=== PATIENT | male | born 1970 | race Caucasian/White ===

== ENCOUNTER 2018-05-08 02:39 | Emergency (ER) | payer BC ==
--- NOTE | 2018-05-08 02:52 | ER Report ---
History and Physical Time Seen By MD: 02:52 Hx. of Stated Complaint: PT REPORTS PAIN WITH DEEP BREATHING AND TIGHTNESS IN CHEST PAST 2 DAYS HPI/ROS This is a 47-year-old male who is a daily tobacco smoker. He presents to the emergency department with 24 hours of worsening pleuritic chest pain. States he feels a tightness in his chest when taking a deep breath. Describes it as something "blocking" him from taking a deep breath. He denies any trauma. He denies fever chills. He has had multiple episodes of pneumonia in the past. He does not have a cough. 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 He does not have any pain in his lower extremities. No recent trauma. Allergies: Coded Allergies: codeine (Verified Allergy, Mild, 07/14/08) adhesive tape (Verified Allergy, Unknown, 05/08/18) Home Meds Reported Medications Ibuprofen (Motrin) 200 Mg Tab, 200 MG PO Q6H Y, #20 02/12/12 Discontinued Reported Medications Cephalexin Monohydrate (Keflex) 500 Mg Cap, 500 MG PO QID, #20 02/12/12 Guaifenesin (Guaifenesin) 600 Mg Tabcr, 600 MG PO BID 02/12/12 Tramadol Hcl (Ultram) 50 Mg Tab, 50 MG PO Q6H Y 02/12/12 Acetaminophen (Acetaminophen) 325 Mg Tablet, 325 MG PO Q6H Y may take 1 or 2 tablets as needed 02/12/12 Naproxen (Naprosyn) 250 Mg Tab, 250 MG PO BID Y 02/12/12 Meclizine Hcl (Meclizine Hcl) 25 Mg Tab.chew, 25 MG PO Q6-8H Y 02/12/12 Reviewed Nurses Notes: Yes Old Medical Records Reviewed: Yes Hx Smoking: Yes Smoking Status: Current: Every Day Smoker Exposure to Second Hand Smoke?: No Hx Substance Use Disorder: No Constitutional Vital Sign - Last 24 Hours 05/08/18 05/08/18 05/08/18 05/08/18 02:39 02:42 02:43 02:54 Temp 98.6 Pulse ??? 79 70 Resp 20 12 B/P (MAP) 143/99 143/99 (114) Pulse Ox 93 O2 Delivery Room Air 05/08/18 05/08/18 05/08/18 05/08/18 03:00 03:09 03:24 03:30 Pulse 78 ??? Resp 17 B/P (MAP) 125/84 (98) ???/??? (1665) Pulse Ox 94 05/08/18 05/08/18 05/08/18 05/08/18 03:39 03:51 03:54 04:00 Pulse ??? 73 Resp 15 B/P (MAP) 128/81 (97) 113/82 (92) Pulse Ox 95 05/08/18 04:09 Pulse 69 Resp 12 Pulse Ox 93 Physical Exam General Appearance: The patient is alert, has no immediate need for airway protection and no current signs of toxicity. Eyes: Pupils equal and round no injection. Respiratory: Chest is non tender, lungs are clear to auscultation. Cardiac: regular rate and rhythm Gastrointestinal: Abdomen is soft and non tender, no masses, bowel sounds normal. Extremities have full range of motion and are non tender. Skin: No rashes or lesions. DIFFERENTIAL DIAGNOSIS: After history and physical exam differential diagnosis was considered for shortness of breath including but not limited to pulmonary infectious process, COPD, asthma, pulmonary embolus and congestive heart failure. Medical Decision Making Data Points Result Diagram: 05/08/18 0256 05/08/18 0256 Laboratory Hematology Test 05/08/18 02:56 Red Blood Count 5.61 M/uL (4.00-5.60) Mean Corpuscular Volume 89.5 fL (80.0-96.0) Mean Corpuscular Hemoglobin 31.0 pg (26.0-33.0) Mean Corpuscular Hemoglobin Concent 34.7 g/dL (32.0-36.0) Red Cell Distribution Width 14.4 % (11.5-14.5) Mean Platelet Volume 7.7 fL (7.2-11.1) Neutrophils (%) (Auto) 65.5 % (39.4-72.5) Lymphocytes (%) (Auto) 21.8 % (17.6-49.6) Monocytes (%) (Auto) 9.4 % (4.1-12.4) Eosinophils (%) (Auto) 2.8 % (0.4-6.7) Basophils (%) (Auto) 0.5 % (0.3-1.4) Nucleated RBC Relative Count (auto) 0.1 /100WBC Neutrophils # (Auto) 7.3 K/uL (2.0-7.4) Lymphocytes # (Auto) 2.4 K/uL (1.3-3.6) Monocytes # (Auto) 1.0 K/uL (0.3-1.0) Eosinophils # (Auto) 0.3 K/uL (0.0-0.5) Basophils # (Auto) 0.1 K/uL (0.0-0.1) Nucleated RBC Absolute Count (auto) 0.01 K/uL Sodium Level 138 mmol/L (137-145) Potassium Level 3.5 mmol/L (3.5-5.0) Chloride Level 103 mmol/L (98-107) Carbon Dioxide Level 27 mmol/L (22-30) Blood Urea Nitrogen 20 mg/dl (9-21) Creatinine 1.00 mg/dl (0.66-1.25) Glomerular Filtration Rate Calc > 60.0 Random Glucose 106 mg/dl (75-110) Calcium Level 8.5 mg/dl (8.4-10.2) Total Bilirubin 0.7 mg/dl (0.2-1.3) Aspartate Amino Transf (AST/SGOT) 21 U/L (0-35) Alanine Aminotransferase (ALT/SGPT) 26 U/L (0-56) Alkaline Phosphatase 95 U/L (0-126) Troponin I < 0.012 ng/ml Total Protein 6.7 gm/dl (6.3-8.2) Albumin 3.7 g/dl (3.5-5.0) Chemistry Test 05/08/18 02:56 White Blood Count 11.1 k/uL (4.5-11.0) Red Blood Count 5.61 M/uL (4.00-5.60) Hemoglobin 17.4 g/dL (14.0-18.0) Hematocrit 50.2 % (42.0-52.0) Mean Corpuscular Volume 89.5 fL (80.0-96.0) Mean Corpuscular Hemoglobin 31.0 pg (26.0-33.0) Mean Corpuscular Hemoglobin Concent 34.7 g/dL (32.0-36.0) Red Cell Distribution Width 14.4 % (11.5-14.5) Platelet Count 271 K/uL (150-450) Mean Platelet Volume 7.7 fL (7.2-11.1) Neutrophils (%) (Auto) 65.5 % (39.4-72.5) Lymphocytes (%) (Auto) 21.8 % (17.6-49.6) Monocytes (%) (Auto) 9.4 % (4.1-12.4) Eosinophils (%) (Auto) 2.8 % (0.4-6.7) Basophils (%) (Auto) 0.5 % (0.3-1.4) Nucleated RBC Relative Count (auto) 0.1 /100WBC Neutrophils # (Auto) 7.3 K/uL (2.0-7.4) Lymphocytes # (Auto) 2.4 K/uL (1.3-3.6) Monocytes # (Auto) 1.0 K/uL (0.3-1.0) Eosinophils # (Auto) 0.3 K/uL (0.0-0.5) Basophils # (Auto) 0.1 K/uL (0.0-0.1) Nucleated RBC Absolute Count (auto) 0.01 K/uL Glomerular Filtration Rate Calc > 60.0 Calcium Level 8.5 mg/dl (8.4-10.2) Total Bilirubin 0.7 mg/dl (0.2-1.3) Aspartate Amino Transf (AST/SGOT) 21 U/L (0-35) Alanine Aminotransferase (ALT/SGPT) 26 U/L (0-56) Alkaline Phosphatase 95 U/L (0-126) Troponin I < 0.012 ng/ml Total Protein 6.7 gm/dl (6.3-8.2) Albumin 3.7 g/dl (3.5-5.0) EKG/Imaging EKG Interpretation 12 lead EKG: Rhythm: normal sinus rhythm [place]: normal QRS: normal ST segments: normal Monitor Interpretation: Normal Sinus Rhythm Imaging X-ray: CXR was obtained. I viewed the images myself on the PACS system. My interpretation of the images is: normal. The radiologist interpretation had no clinically significant variation from this interpretation. Results: CT scan of the CTA of the chest was obtained. The results of the study are normal. The study was read by the radiologist. I viewed the images myself on the PACS system. ED Course/Re-evaluation ED Course This is a 47-year-old male who presents to the emergency department with pleuritic chest pain. He smokes a pack of cigarettes per day. He has had the symptoms for approximately 24 hours. He denies cough fever or chills. He has a normal EKG, and a normal troponin after experiencing symptoms for 24 hours. A chest x-ray and a CTA of the chest are both normal. There is no PE, pneumothorax , or pneumonia. He was given a DuoNeb and Toradol for his symptoms. He states that he feels improved. He does not need any steroids. I think he likely has a viral URI, and I will recommend supportive care. Decision to Disposition Date: May 08, 2018 Decision to Disposition Time: 04:32 Depart Departure Latest Vital Signs Vital Signs Date Time Temp Pulse Resp B/P (MAP) Pulse Ox O2 Delivery O2 Flow Rate FiO2 05/08/18 04:09 69 12 93 05/08/18 04:00 113/82 (92) 05/08/18 02:42 98.6 Room Air Impression: Primary Impression: Viral URI Condition: Improved Disposition: HOME OR SELF-CARE Referrals: CARLOS POPE (PCP) Patient Instructions: Upper Respiratory Infection (ED) LILIAN HAQ MD May 08, 2018 02:52
[2018-05-08] MEDS ORDERED: ASPIRIN 81 MG CHEW PO ONE (02:55)
[2018-05-08] MEDS ORDERED: NS(*) 0.9% 1000 ML BAG 1,000 ML IV ONE (02:55)
[2018-05-08] MEDS ORDERED: KETOROLAC 30 MG/ML VIAL IVP ONE (02:55)
--- NOTE | 2018-05-08 03:01 | EKG ---
FACILITY: [facility] PATIENT NAME: TRISTEN FREDERICK : [id number] MR: [id number] V: [id number] EXAM DATE: ORDERING PHYSICIAN: LILIAN HAQ TECHNOLOGIST: MICHOACANO Test Reason : CP Blood Pressure : / mmHG Vent. Rate : 073 BPM Atrial Rate : 073 BPM P-R Int : 168 ms QRS Dur : 100 ms QT Int : 368 ms P-R-T Axes : 060 016 011 degrees QTc Int : 405 ms Normal sinus rhythm Normal ECG No previous ECGs available Confirmed by IVON KAUR ([id number]) on 05/09/2018 11:07:52 AM Referred By: Confirmed By:IVON KAUR
[2018-05-08 03:08] LABS: PLATELET COUNT, AUTOMATED 271 K/uL (150-450)
[2018-05-08] MEDS ORDERED: NS 0.9% 25 ML BAG 50 ML ONE (03:16)
[2018-05-08] MEDS ORDERED: IOPAMIDOL 76% 75 ML INFUS BTL 75 ML ONE (03:16)
--- NOTE | 2018-05-08 03:46 | RADIOLOGY IMAGING REPORT ---
FACILITY: [facility] PATIENT NAME: Donavon Lee : 1970 MR: [id number] V: [id number] EXAM DATE: ORDERING PHYSICIAN: LILIAN HAQ TECHNOLOGIST: Location: [facility] Patient: Donavon Lee : 1970 Visit/Account:[id number] Date of Sevice: 05/08/2018 CHEST SINGLE AP 05/08/2018 02:52 hours. HISTORY: Chest pain for 3 days. History of pneumonia. Evaluate for pneumothorax. COMPARISON: 04/09/2017 and studies dating to 06/21/2006. TECHNIQUE: Portable AP view of the chest. FINDINGS: Tubes/lines/hardware: There are external chest leads. Pulmonary: No pneumothorax. There is very mild linear scarring or atelectasis in the left lower lung field, new. Right lung is clear. No pleural effusion. Cardiomediastinal: Cardiac and mediastinal silhouettes are within normal limits. Bones/soft tissues: No acute osseous abnormality. The visible abdomen is normal. IMPRESSION: 1. New mild scarring or atelectasis in the left lower lung field. 2. No pneumothorax. Report Dictated By: Miranda Cr at 05/08/2018 3:39 AM Report E-Signed By: Miranda Cr at 05/08/2018 3:41 AM WSN:[id number]
--- NOTE | 2018-05-08 04:21 | RADIOLOGY IMAGING REPORT ---
FACILITY: [facility] PATIENT NAME: Donavon Lee : 1970 MR: [id number] V: [id number] EXAM DATE: ORDERING PHYSICIAN: LILIAN HAQ TECHNOLOGIST: Location: [facility] [place] Patient: Donavon Lee : 1970 Visit/Account:[id number] Date of Sevice: 05/08/2018 EXAMINATION: CTA Chest With Contrast 05/08/2018 2:52 AM HISTORY: Chest pain for 3 days. History of pneumonia. TECHNIQUE: Pulmonary embolus protocol - Thin-slice axial imaging of the chest was performed during maximal pulmonary arterial opacification with intravenous nonionic iodinated contrast. 3D coronal sla b MIPs and 2D reconstructions in the coronal and sagittal planes were performed to aid in pulmonary e mbolus detection. Filler Feeder images have been stored on PACS. Contrast: 75 mL of IV Isovue 370. One of the following dose optimization techniques was utilized in the performance of this exam: Autom ated exposure control; adjustment of the mA and/or kV according to the patient's size; or use of an i terative reconstruction technique. Specific details can be referenced in the facility's radiology C T exam operational policy. COMPARISON STUDIES: Chest x-ray 02/11/2012, CT 02/10/2012. FINDINGS: Angiographic Findings: Pulmonary arteries: There are no filling defects in the main, right, left, lobar, segmental or visual ized sub-segmental branches of the pulmonary arterial system Other vasculature: negative Additional non-angiographic findings: Lungs / pleura: Calcified granuloma in the right lower lobe. No significant acute finding. Mediastinum / regulo: negative Heart / pericardium: negative Musculoskeletal / Body wall: negative Lymph node assessment: negative Lower neck: negative Upper abdomen: 2.7 cm gallstone in the gallbladder. IMPRESSION: 1. Negative CTA evaluation for PE. 2. No acute cardiopulmonary finding. Report Dictated By: Andrea Bateman MD at 05/08/2018 4:10 AM Report E-Signed By: Andrea Bateman MD at 05/08/2018 4:17 AM WSN:[id number]
[2018-05-08 04:30] VITALS: BP 120/82
[2018-05-08] MEDS ORDERED: ALBUTEROL 2.5 MG/3 ML NEB NEB ONE (04:30)
== END 2018-05-08 04:56 | disposition home or self-care (01) ==
LOC: ER 03:13
DX: J06.9 Acute upper respiratory infection, unspecified (principal)
CPT/HCPCS: 71045; 71275; 84484; 85025; 93005; 96361; 96374; 99284; J1885; J7030; J7613; Q9967; 82040; 82247; 82310; 82374; 82435; 82565; 82947; 84075; 84132; 84155; 84295; 84450; 84460; 84520

== ENCOUNTER → 2018-05-08 | Outpatient (REF) | payer BC ==
[~2018-05-08] MED LIST: ACET-1748 PO; CEP500 PO; GUALA600 PO; IBU200 PO; IBU600 PO; MEC25 PO; MECL-111 PO; NAP250 PO; TRA50 PO
[2018-05-08 19:26] LABS: PLATELET COUNT, AUTOMATED 260 K/uL (150-450)
== END ==
PROVIDERS: ATTEND Nurse Practitioner Family
DX: R07.9 Chest pain, unspecified (principal)
CPT/HCPCS: 82040; 82247; 82310; 82374; 82435; 82565; 82947; 84075; 84132; 84155; 84295; 84450; 84460; 84484; 84520; 85025

== ENCOUNTER → 2018-08-08 | Day surgery (SDC) | payer BC ==
[~2018-08-08] VITALS: Ht 182.9 cm; Wt 126.1 kg
[2018-08-08] VITALS (7 sets, daily range): BP systolic 97–130; BP diastolic 61–83
[~2018-08-08] MED LIST changes: +APAP/HYDROCODONE 325/5 TAB PO ONE; +DOCU-416 PO; +FAMOTIDINE 20 MG TAB PO ONE; +HYDR-385 PO; +HYDROmorphone HCL 2 MG/ML SDV ONE; +LIDOCAINE/SOD BICARB 8.4% SYR ID ONE; +MIDAZOLAM 2 MG/2 ML VIAL IVP PRN; +NORMOSOL R SOLN(*) 1000 ML BAG 1,000 ML IV PRN; +PROPOFOL EMUL(*) 10MG/ML 20 ML 40 ML ONE; +ROPIVACAINE 0.5% 20 ML VIAL ONE; +ceFAZolin(*) 2GM/D5W 50ML 50 ML IVPB ONE
--- NOTE | 2018-08-08 11:13 | Short(Outpt) Discharge Summary ---
Discharge Summary Reason for Hosp/Final Diag: (1) Mass of anterior abdominal wall Status: Chronic Hospital Course & Plan: Large lipoma removed from LUQ of abdominal wall without problems. Departure Discharge to: Home, Self Care Discharge Instructions Home Meds Active Scripts Docusate Sodium (COLACE) 100 Mg Capsule, 1 CAP PO BID, #30 CAP 0 Refills TAKE WITH A FULL GLASS OF WATER Prov:JUNIOR DOMINGUEZ MD 08/08/18 Hydrocodone Bit/Acetaminophen (HYDROCODON-ACETAMINOPHEN 5-325) 1 Each Tablet, 1- 2 TAB PO Q4H PRN for PAIN, #30 TAB 0 Refills Prov:JUNIOR DOMINGUEZ MD 08/08/18 Reported Medications Ibuprofen (Motrin) 200 Mg Tab, 200 MG PO Q6H PRN, #20 02/12/12 Follow up Referrals: General Surgery - 08/23/18 @ Surgery, General with JUNIOR DOMINGUEZ MD You have a follow up appointment scheduled with Dr. Dominguez on 08/23/18, at 9:15am. Diet: Regular Activity: As Tolerated Special Instructions: You may remove the white surgical dressing on 08/10/18, then you can shower. After showering, leave the incision open to air but leave the steristrips in place until they fall off on their own. Do not immerse the incision for 2 weeks. JUNIOR DOMINGUEZ MD Aug 08, 2018 11:13
--- NOTE | 2018-08-08 11:20 | Post Operative Progress Note ---
Post Operative Progress Note Date: Aug 08, 2018 Time: 11:13 Surgeon: Ramiro Dictation number: [id number] Anesthesia: LMA by Dr. Marinelli Pre-Op Diagnosis: Subcutaneous mass, LUQ of abdomen Post-Op Diagnosis: RENEE, c/w benign lipoma Findings: C/W benign lipoma Procedure(s): Excision of LUQ abdominal subcutaneous mass Specimen Removed:(May be N/A): LUQ subcutaneous mass Complications: None Fluids: See anesthesia record Estimated Blood Loss: Minimal Date OP Note Dictated: Aug 08, 2018 Time OP Note Dictated: 11:14 JUNIOR DOMINGUEZ MD Aug 08, 2018 11:20
--- NOTE | 2018-08-08 12:20 | OPERATIVE REPORT 1 ---
EVENT DATE: August 08, 2018 SURGEON: Moi Rubio M.D. ANESTHESIOLOGIST: Wisam Marinelli M.D. ANESTHESIA: LMA. PREOPERATIVE DIAGNOSIS Left upper quadrant abdominal subcutaneous mass. POSTOPERATIVE DIAGNOSIS Left upper quadrant abdominal subcutaneous mass. PROCEDURE PERFORMED Excision of left upper quadrant subcutaneous mass. COMPLICATIONS None. CONDITION Stable. ESTIMATED BLOOD LOSS Minimal. FINDINGS The mass was consistent with a large benign lipoma. INDICATIONS This is a 47-year-old gentleman who presented to my office with a large lump in his left upper abdominal quadrant, consistent with a lipoma. He was requesting to have it removed. DESCRIPTION OF PROCEDURE The patient was brought the operating room and placed supine on the operating table. LMA anesthesia was administered and his abdomen was prepped and draped in sterile fashion. A time-out was completed. I injected the skin overlying the mass with 0.5% ropivacaine plain and made a transverse incision overlying the mass and dissected through the dermis and subcutaneous fat. I then did mostly blunt dissection around it because it immediately appeared after getting through the dermis and was consistent with a lipoma with sharp margins and it was multilobulated. I used my finger to pull out the lobulation and ultimately was able to get it out in one piece. It was approximately 13 cm wide x about 5 cm thick. It was passed off the field. The wound was irrigated and dried and made hemostatic with electrocautery and the subcutaneous pocket was closed with running 3-0 Vicryl sutures and the skin was closed with interrupted Vicryl deep dermal sutures and 4-0 Monocryl running subcuticular sutures. Skin was cleaned and dried and steri-strips applied followed by sterile surgical dressings. The patient was awakened and extubated in the or and transported to the recovery room in stable condition, having tolerated the procedure without any apparent problems. SEPIDEH
== END ==
LOC: OR 01:52
PROVIDERS: ATTEND Surgery
DX: R19.02 Left upper quadrant abdominal swelling, mass and lump (principal)
CPT/HCPCS: 22903; 88305; J1170; J2250; J2704; J2795; J0690